=== PATIENT | male | born 1995 | race Caucasian/White ===

== ENCOUNTER 2023-01-13 00:03 | Emergency (ER) | payer SELFPAY ==
[2023-01-13 00:10] VITALS: BP 136/89; PULSE 69; RESP 18; TEMP 36.4; O2SAT 100; BMI 32.8
[2023-01-13 00:35] LABS: Basophils % 0.2 %; Hematocrit 44.5 % (42.0-52.0); Hemoglobin 15.5 g/dL (11.7-16.6); Lymphocytes % 5.7 %; Mean Corpuscular HGB Conc 34.8 g/dL (30.0-36.0); Mean Corpuscular Hemoglobin 32.1 pg (28.0-34.0); Mean Corpuscular Volume 92.1 fl (80-94); Mean Platelet Volume 9.2 fL (7.4-10.4); Monocytes # 0.5 10^3/uL (0.2-0.9); Monocytes % 2.8 %; Neutrophils # 15.65 10^3/uL (1.8-7.7); Neutrophils % 90.7 %; Nucleated Red Blood Cells % 0 %; Platelet Count 354 10^3/cmm (130-400); Red Blood Count 4.83 10^6/uL (4.1-5.3); Red Cell Distribution Width 11.6 % (12.1-15.1); White Blood Count 17.3 10^3/uL (4.0-10.0)
--- NOTE | 2023-01-13 00:35 | XRR_ITS ---
PROCEDURE INFORMATION: Exam: XR Abdomen Exam date and time: 01/13/2023 12:38 AM Age: 27 years old Clinical indication: Abdominal pain; Localized; Right lower quadrant (rlq); Patient HX: C/O rlq pain TECHNIQUE: Imaging protocol: Radiologic exam of the abdomen. Views: Frontal supine view of the abdomen. 1 View. COMPARISON: CR XR chest 2V* [id number] 02/01/2016 8:04 PM FINDINGS: Gastrointestinal tract: No bowel dilation. No free intra-abdominal air. The bowel gas pattern is nonobstructive. Bones/joints: Unremarkable. XR/XR KUB portable [id number] IMPRESSION: No acute findings correlate and follow-up as clinically indicated.
[2023-01-13 00:42] VITALS: BP 154/94; PULSE 58; RESP 18; O2SAT 98
[2023-01-13 00:45] VITALS: RESP 18; O2SAT 98
[2023-01-13] MEDS: ondansetron 2 mg/ML SDV 2 mL 4 MG IVP ×2 (00:45→03:20)
[2023-01-13] MEDS: morphine 4 mg/mL SDV 1 mL IVP (00:45)
--- NOTE | 2023-01-13 00:50 | CTR_ITS ---
PROCEDURE INFORMATION: Exam: CT Abdomen And Pelvis With Contrast Exam date and time: 01/13/2023 1:03 AM Age: 27 years old Clinical indication: Pain and abnormal findings; Abnormal lab test; Elevated wbc; Abdominal pain; Localized; Right lower quadrant (rlq); Patient HX: Rlq pain with wbc of 17k; Additional info: Rlq abdominal pain TECHNIQUE: Imaging protocol: Computed tomography of the abdomen and pelvis with contrast. Radiation optimization: All CT scans at this facility use at least one of these dose optimization techniques: automated exposure control; mA and/or kV adjustment per patient size (includes targeted exams where dose is matched to clinical indication); or iterative reconstruction. Contrast material: OMNI 350; Contrast volume: 100 ml; Contrast route: INTRAVENOUS (IV); REPORTING DATA: Count of CT and Cardiac NM exams in prior 12 months: This patient has received 0 known CTs and 0 known cardiac nuclear medicine studies in the 12 months prior to the current study. COMPARISON: CR (ABDOMEN, ) 01/13/2023 12:38 AM RADIATION DOSE METRICS: Total DLP (mGy-cm): 836.19 FINDINGS: Liver: The hepatic parenchyma is diffusely hypoattenuating. Are a call for a a No focal intrahepatic lesions are seen. Gallbladder and bile ducts: No gallbladder wall thickening. No calcified stones. No ductal dilation. Pancreas: No intraparenchymal lesions are seen. No ductal dilation. Spleen: No intraparenchymal lesions are seen. No splenomegaly. Adrenal glands: Normal. No mass. Kidneys and ureters: No solid intraparenchymal soft tissue lesion. There is a 3 mm calculus at the right UVJ resulting in moderate right hydroureter and hydronephrosis. Mild left renal and Nia ureteral soft tissue stranding/inflammatory changes are noted. Delayed appearance of the nephrographic phase of the right kidney. Right renal midpole nonobstructing 1 mm and 3 mm renal calculi on series 4, image 36. No other renal, ureteral, or urinary bladder calculi are seen. No left hydronephrosis or hydroureter. Stomach and bowel: No pathologic bowel dilatation. No obstruction. Appendix: No evidence of appendicitis. Intraperitoneal space: No free air. No abnormal walled-off fluid collection. Vasculature: No abdominal aortic aneurysm. Lymph nodes: No pathologically enlarged lymph nodes. Urinary bladder: Unremarkable as visualized. Reproductive: Unremarkable as visualized. Bones/joints: No acute fracture. Soft tissues: Very small fat containing umbilical hernia. CT/CT abdomen pelvis w con* [id number] IMPRESSION: 1. There is a 3 mm calculus at the right UVJ resulting in moderate right hydroureter and hydronephrosis. Mild left renal and Nia ureteral soft tissue stranding/inflammatory changes are noted. Delayed appearance of the nephrographic phase of the right kidney. Right renal midpole nonobstructing 1 mm and 3 mm renal calculi on series 4, image 36. No other renal, ureteral, or urinary bladder calculi are seen. 2. Hepatic steatosis and other chronic/incidental findings as described above.
[2023-01-13 00:53] LABS: Alanine Aminotransferase 77 U/L (0-41); Albumin Level 4.9 g/dL (3.5-5.2); Alkaline Phosphatase 99 U/L (40-130); Aspartate Amino Transferase 39 U/L (0-40); Blood Urea Nitrogen 10 mg/dL (6-20); Calcium 9.6 mg/dL (8.5-10.5); Carbon Dioxide 22 mmol/L (22-29); Chloride 102 mmol/L (98-107); Globulin 2.9 g/dL (1.3-4.6); Glomerular Filtration Rate 80.3 mL/min (90-130); Glucose 139 mg/dL (65-115); Osmolality Calculated 287 mOsm/kg (285-295); Sodium 138 mmol/L (136-145); Total Bilirubin 0.8 mg/dL (0.15-1.2); Total Protein 7.8 g/dL (6.6-8.7)
[2023-01-13] MEDS: sodium chloride 0.9% 1,000 ML 999 ML IV (00:57)
[2023-01-13] MEDS: iohexol 350 mg/mL 500 mL Btl (per mL) IV (01:07)
[2023-01-13 01:17] LABS: Lipase 20 U/L (13-60)
[2023-01-13 01:45] VITALS: BP 150/60; PULSE 66; RESP 18; O2SAT 97
[2023-01-13 02:00] VITALS: PULSE 67; RESP 18; O2SAT 98
[2023-01-13 02:07] LABS: Add Urine Microscopic? YES; Bilirubin Urine Neg (Negative); Blood Urine 3+ (Negative); Glucose Urine UA Norm (Normal); Ketones Urine 2+ (Negative); Leukocyte Esterase Urine Negative (Negative); Nitrate Urine Negative (Negative); Protein Urine 1+ (Negative); Urine Appearance Hazy (CLEAR); Urine Color Yellow (Yellow); Urobilinogen Urine Neg (Negative); pH Urine 5 (5-7)
[2023-01-13 02:08] LABS: Add Urine Culture? Yes; Bacteria Urine 1+ /hpf; Mucus Urine 2+ /hpf; RBC Urine 15-25 /hpf (0-2); WBC Urine 0-4 /hpf (0-5)
--- NOTE | 2023-01-13 02:38 | W.ED.ABDPA2 ---
Documented by User: Jania Alejandre, PROFESSOR OF THEATER-C 01/13/23 03:22 HPI - Abdominal Pain General: Chief Complaint: Abdominal Pain Stated Complaint: lower abd pain Time Seen by Provider: 01/13/23 00:11 History of Present Illness: Patient is in for sudden onset abdominal pain at 5:00 this evening. Patient states that he was not really doing anything and then just started having severe right lower quadrant abdominal pain. He has vomited 3 times. He denies any fever or chills. He denies any urinary symptoms, burning, blood, dysuria. He denies any history of kidney stone. He states that he does feel like he is a little bit constipated but he did have a normal bowel movement about 8:00 tonight. He reports his pain is an 8 on a 0-to-10 scale currently. Associated Symptoms: Reports nausea and vomiting; Denies chills, diarrhea, dysuria, fever(s) and syncope Review of Systems Const: Denies: fever(s), chills or body aches Eyes: Denies: change in vision or blurry vision Card: Denies: chest pain, palpitations, irregular heart rhythm, lightheadedness or syncope Resp: Denies: dyspnea, productive cough or non-productive cough GI: Reports: abdominal pain, nausea and vomiting; Denies: diarrhea : Denies: flank pain, dysuria, urinary frequency, urinary urgency or urinary hesitancy Musc: Denies: neck pain or back pain Neuro: Denies: headache(s), numbness in extremities or weakness in extremities Physical Exam Const: COMMON NORMALS: no acute distress, patient oriented x3 and alert GENERAL APPEARANCE: cooperative ORIENTATION/CONSCIOUSNESS: Yes awake, Yes oriented to person, Yes oriented to place and Yes oriented to time Eye: COMMON NORMALS: Equal, round and reactive pupils present, EOMs intact bilaterally and conjunctivae normal GENERAL EYE: appearance normal, both eyes and all related structures ALIGNMENT: Yes alignment normal CONJUNCTIVA: Yes conjunctivae normal SCLERA: sclerae normal PUPIL: Yes Equal, round and reactive pupils present Resp: COMMON NORMALS: normal respiratory effort, No retractions, No use of accessory muscles and clear to auscultation bilaterally EFFORT & INSPECTION: Yes symmetric chest movement AUSCULTATION: clear to auscultation bilaterally Cardio: COMMON NORMALS: regular rate, regular rhythm, S1 normal heart sound present and S2 normal heart sound present RATE: regular rate RHYTHM: regular rhythm HEART SOUNDS: S1 normal heart sound present and S2 normal heart sound present GI: COMMON NORMALS: Normal to inspection, nondistended, normoactive bowel sounds present and Soft to palpation PALPATION: Yes Soft to palpation and Yes Tenderness to palpation present (GI) Details: RLQ and RUQ OTHER: Positive for right lower quadrant and right flank/right upper quadrant tenderness. Guarding tenderness to the right flank. No rebound tenderness. Negative peritoneal signs Neuro: COMMON NORMALS: patient oriented x3 SENSORIUM/ORIENTATION: Yes alert, Yes oriented to person, Yes oriented to place and Yes oriented to time Psych: COMMON NORMALS: cooperative Course Vital Signs: Vital signs: Vital Signs Temperature 97.6 F 01/13/23 00:10 Pulse Rate 67 01/13/23 02:00 Respiratory Rate 18 01/13/23 02:00 Blood Pressure 150/60 01/13/23 01:45 Pulse Oximetry 98 01/13/23 02:00 Oxygen Delivery Me thod Room Air 01/13/23 02:00 MDM - Abdominal Pain Medical Decision Making Consider renal stone, appendicitis Patient pain improved with morphine. No vomiting while in the ER. White blood cell count 17.3. UA shows protein hematuria negative nitrates. 0320?KUB and CT not yet read by radiologist. Discussed the case with Dr. Samuels who states imaging shows renal stone. Agrees to assume care of patient. Ordered Flomax and Toradol. Advised patient of renal stone close monitoring and red flags for return to the ER. Patient care handed over to Dr. Samuels Lab Data 01/13/23 00:26 01/13/23 00:26 Labs/Radiology: Radiology Impressions KUB X-Ray 01/13/23 00:35 IMPRESSION: No acute findings correlate and follow-up as clinically indicated. Abdomen/Pelvis CT 01/13/23 00:50 IMPRESSION: 1. There is a 3 mm calculus at the right UVJ resulting in moderate right hydroureter and hydronephrosis. Mild left renal and Nia ureteral soft tissue stranding/inflammatory changes are noted. Delayed appearance of the nephrographic phase of the right kidney. Right renal midpole nonobstructing 1 mm and 3 mm renal calculi on series 4, image 36. No other renal, ureteral, or urinary bladder calculi are seen. 2. Hepatic steatosis and other chronic/incidental findings as described above. Laboratory Results WBC 17.3 10^3/uL (4.0-10.0) H 01/13/23 00: RBC 4.83 10^6/uL (4.1-5.3) 01/13/23 00: Hgb 15.5 g/dL (11.7-16.6) 01/13/23 00: Hct 44.5 % (42.0-52.0) 01/13/23 00: MCV 92.1 fl (80-94) 01/13/23 00: MCH 32.1 pg (28.0-34.0) 01/13/23 00: MCHC 34.8 g/dL (30.0-36.0) 01/13/23 00: RDW 11.6 % (12.1-15.1) L 01/13/23 00: Plt Count 354 10^3/cmm (130-400) 01/13/23 00: MPV 9.2 fL (7.4-10.4) 01/13/23 00: Neut % (Auto) 90.7 % 01/13/23 00: Lymph % (Auto) 5.7 % 01/13/23 00: [place] % (Auto) 2.8 % 01/13/23 00: Eos % (Auto) 0.0 % 01/13/23 00: Baso % (Auto) 0.2 % 01/13/23 00: Neut # (Auto) 15.65 10^3/uL (1.8-7.7) H 01/13/23 00: Lymph # (Auto) 1.0 10^3/uL (0.8-4.8) 01/13/23 00:26 [place] # (Auto) 0.5 10^3/uL (0.2-0.9) 01/13/23 00: Eos # (Auto) 0.0 10^3/uL (0.0-0.8) 01/13/23 00: Baso # (Auto) 0.0 10^3/uL (0.0-0.1) 01/13/23 00:26 Nucleated RBC % (auto) 0 % 01/13/23 00:26 Nucleated RBCs # 0.0 /100WBC 01/13/23 00:26 Sodium 138 mmol/L (136-145) 01/13/23 00:26 Potassium 4.0 mmol/L (3.5-5.1) 01/13/23 00:26 Chloride 102 mmol/L (98-107) 01/13/23 00:26 Carbon Dioxide 22 mmol/L (22-29) 01/13/23 00:26 Anion Gap 18.0 (5-19) 01/13/23 00:26 BUN 10 mg/dL (6-20) 01/13/23 00:26 Creatinine 1.1 mg/dL (0.7-1.2) 01/13/23 00:26 GFR Calculation 80.3 mL/min (90-130) L 01/13/23 00: Glucose 139 mg/dL (65-115) H 01/13/23 00:26 Calculated Osmolality 287 mOsm/kg (285-295) 01/13/23 00: Calcium 9.6 mg/dL (8.5-10.5) 01/13/23 00:26 Total Bilirubin 0.8 mg/dL (0.15-1.2) 01/13/23 00: AST 39 U/L (0-40) 01/13/23 00:26 ALT 77 U/L (0-41) H 01/13/23 00:26 Alkaline Phosphatase 99 U/L (40-130) 01/13/23 00:26 Total Protein 7.8 g/dL (6.6-8.7) 01/13/23 00: Albumin 4.9 g/dL (3.5-5.2) 01/13/23 00: Globulin 2.9 g/dL (1.3-4.6) 01/13/23 00:26 Lipase 20 U/L (13-60) 01/13/23 00:26 Urine Color Yellow (Yellow) 01/13/23 01:48 Urine Appearance Hazy (CLEAR) A 01/13/23 01:48 Urine pH 5 (5-7) 01/13/23 01:48 Ur Specific [place] 1.020 (1.005-1.030) 01/13/23 01:48 Urine Protein 1+ (Negative) H 01/13/23 01:48 Urine Glucose (UA) Norm (Normal) 01/13/23 01:48 Urine Ketones 2+ (Negative) H 01/13/23 01:48 Urine Blood 3+ (Negative) H 01/13/23 01:48 Urine Nitrate Negative (Negative) 01/13/23 01:48 Urine Bilirubin Neg (Negative) 01/13/23 01:48 Urine Urobilinogen Neg mg/dL (Negative) 01/13/23 01:48 Ur Leukocyte Esterase Negative (Negative) 01/13/23 01:48 Urine RBC 15-25 /hpf (0-2) H 01/13/23 01:48 Urine WBC 0-4 /hpf (0-5) H 01/13/23 01:48 Ur Squamous Epith Cells None /hpf (0-5) 01/13/23 01:48 Amorphous Sediment Not Reportable 01/13/23 01:48 Urine Bacteria 1+ /hpf (NONE) H 01/13/23 01:48 Urine Mucus 2+ /hpf 01/13/23 01:48 Discharge Plan Discharge Patient Disposition: Home Clinical Impression: Renal calculi Condition: Stable Prescriptions: New Flomax 0.4 mg capsule 0.4 mg PO DAILY Qty: 5 0RF ondansetron 4 mg tablet,disintegrating 4 mg PO Q8H PRN (Reason: nausea and vomiting) 3 Days Qty: 9 0RF hydrocodone-acetaminophen 5-325 mg tablet 1 tab PO Q6H PRN (Reason: pain) Qty: 14 0RF Discharge Orders: Discharge ED (Routine); Ordered 01/13/23 Ordered By: Roshni Samuels Discharge Diet: Advance as tolerated Discharge Activity: Resume usual activity Patient Instructions: Kidney Stones (ED), Opioid Safety, Pain Management Coding Level of Care Code ED Box Printing Machine Operator for Chg Fwd Documented by User: Roshni Samuels MD 01/13/23 03:35 HPI - Abdominal Pain General: Chief Complaint: Abdominal Pain Stated Complaint: lower abd pain Time Seen by Provider: 01/13/23 00:11 Course Vital Signs: Vital signs: Vital Signs Temperature 97.6 F 01/13/23 00:10 Pulse Rate 67 01/13/23 02:00 Respiratory Rate 18 01/13/23 02:00 Blood Pressure 150/60 01/13/23 01:45 Pulse Oximetry 98 01/13/23 02:00 Oxygen Delivery Me thod Room Air 01/13/23 02:00 MDM - Abdominal Pain Medical Decision Making Consider renal stone, appendicitis Patient pain improved with morphine. No vomiting while in the ER. White blood cell count 17.3. UA shows protein hematuria negative nitrates. 0320?KUB and CT not yet read by radiologist. Discussed the case with Dr. Samuels who states imaging shows renal stone. Agrees to assume care of patient. Ordered Flomax and Toradol. Advised patient of renal stone close monitoring and red flags for return to the ER. Patient care handed over to Dr. Samuels CT does show a kidney stone no sign urinary tract infections pain is controlled he stable for discharge he is return if worsening. Lab Data 01/13/23 00:26 01/13/23 00:26 Labs/Radiology: Radiology Impressions KUB X-Ray 01/13/23 00:35 IMPRESSION: No acute findings correlate and follow-up as clinically indicated. Abdomen/Pelvis CT 01/13/23 00:50 IMPRESSION: 1. There is a 3 mm calculus at the right UVJ resulting in moderate right hydroureter and hydronephrosis. Mild left renal and Nia ureteral soft tissue stranding/inflammatory changes are noted. Delayed appearance of the nephrographic phase of the right kidney. Right renal midpole nonobstructing 1 mm and 3 mm renal calculi on series 4, image 36. No other renal, ureteral, or urinary bladder calculi are seen. 2. Hepatic steatosis and other chronic/incidental findings as described above. Laboratory Results WBC 17.3 10^3/uL (4.0-10.0) H 01/13/23 00:26 RBC 4.83 10^6/uL (4.1-5.3) 01/13/23 00:26 Hgb 15.5 g/dL (11.7-16.6) 01/13/23 00:26 Hct 44.5 % (42.0-52.0) 01/13/23 00:26 MCV 92.1 fl (80-94) 01/13/23 00: MCH 32.1 pg (28.0-34.0) 01/13/23 00: MCHC 34.8 g/dL (30.0-36.0) 01/13/23 00: RDW 11.6 % (12.1-15.1) L 01/13/23 00: Plt Count 354 10^3/cmm (130-400) 01/13/23 00: MPV 9.2 fL (7.4-10.4) 01/13/23 00: Neut % (Auto) 90.7 % 01/13/23 00: Lymph % (Auto) 5.7 % 01/13/23 00: [place] % (Auto) 2.8 % 01/13/23 00: Eos % (Auto) 0.0 % 01/13/23 00: Baso % (Auto) 0.2 % 01/13/23 00: Neut # (Auto) 15.65 10^3/uL (1.8-7.7) H 01/13/23 00: Lymph # (Auto) 1.0 10^3/uL (0.8-4.8) 01/13/23 00: [place] # (Auto) 0.5 10^3/uL (0.2-0.9) 01/13/23 00: Eos # (Auto) 0.0 10^3/uL (0.0-0.8) 01/13/23 00: Baso # (Auto) 0.0 10^3/uL (0.0-0.1) 01/13/23 00: Nucleated RBC % (auto) 0 % 01/13/23 00: Nucleated RBCs # 0.0 /100WBC 01/13/23 00: Sodium 138 mmol/L (136-145) 01/13/23 00: Potassium 4.0 mmol/L (3.5-5.1) 01/13/23 00: Chloride 102 mmol/L (98-107) 01/13/23 00: Carbon Dioxide 22 mmol/L (22-29) 01/13/23 00: Anion Gap 18.0 (5-19) 01/13/23 00:26 BUN 10 mg/dL (6-20) 01/13/23 00: Creatinine 1.1 mg/dL (0.7-1.2) 01/13/23 00: GFR Calculation 80.3 mL/min (90-130) L 01/13/23 00: Glucose 139 mg/dL (65-115) H 01/13/23 00: Calculated Osmolality 287 mOsm/kg (285-295) 01/13/23 00: Calcium 9.6 mg/dL (8.5-10.5) 01/13/23 00: Total Bilirubin 0.8 mg/dL (0.15-1.2) 01/13/23 00: AST 39 U/L (0-40) 01/13/23: ALT 77 U/L (0-41) H 01/13/23 00: Alkaline Phosphatase 99 U/L (40-130) 01/13/23 00: Total Protein 7.8 g/dL (6.6-8.7) 01/13/23 00: Albumin 4.9 g/dL (3.5-5.2) 01/13/23 00: Globulin 2.9 g/dL (1.3-4.6) 01/13/23 00:26 Lipase 20 U/L (13-60) 01/13/23 00:26 Urine Color Yellow (Yellow) 01/13/23 01:48 Urine Appearance Hazy (CLEAR) A 01/13/23 01:48 Urine pH 5 (5-7) 01/13/23 01:48 Ur Specific [place] 1.020 (1.005-1.030) 01/13/23 01:48 Urine Protein 1+ (Negative) H 01/13/23 01:48 Urine Glucose (UA) Norm (Normal) 01/13/23 01:48 Urine Ketones 2+ (Negative) H 01/13/23 01:48 Urine Blood 3+ (Negative) H 01/13/23 01:48 Urine Nitrate Negative (Negative) 01/13/23 01:48 Urine Bilirubin Neg (Negative) 01/13/23 01:48 Urine Urobilinogen Neg mg/dL (Negative) 01/13/23 01:48 Ur Leukocyte Esterase Negative (Negative) 01/13/23 01:48 Urine RBC 15-25 /hpf (0-2) H 01/13/23 01:48 Urine WBC 0-4 /hpf (0-5) H 01/13/23 01:48 Ur Squamous Epith Cells None /hpf (0-5) 01/13/23 01:48 Amorphous Sediment Not Reportable 01/13/23 01:48 Urine Bacteria 1+ /hpf (NONE) H 01/13/23 01:48 Urine Mucus 2+ /hpf 01/13/23 01:48 Discharge Plan Discharge Patient Disposition: Home Clinical Impression: Renal calculi Condition: Stable Prescriptions: New Flomax 0.4 mg capsule 0.4 mg PO DAILY Qty: 5 0RF ondansetron 4 mg tablet,disintegrating 4 mg PO Q8H PRN (Reason: nausea and vomiting) 3 Days Qty: 9 0RF hydrocodone-acetaminophen 5-325 mg tablet 1 tab PO Q6H PRN (Reason: pain) Qty: 14 0RF Discharge Orders: Discharge ED (Routine); Ordered 01/13/23 Ordered By: Roshni Samuels Discharge Diet: Advance as tolerated Discharge Activity: Resume usual activity Patient Instructions: Kidney Stones (ED), Opioid Safety, Pain Management Coding Level of Care Code ED Box Printing Machine Operator for Melia Waterman
[2023-01-13] MEDS: ketorolac 30 mg/mL INJ IVP (03:20)
[2023-01-13] MEDS: tamsulosin 0.4 mg Capsule PO (03:20)
--- NOTE | 2023-01-13 10:23 | PC.NURSE ---
Addendum entered by Tina Reyna 01/19/23 08:45: Patient had a follow up appointment scheduled with urology - patient did attend appointment Addendum entered by Tina Reyna 01/17/23 15:30: Patient has a follow up appointment scheduled for Monday, January 18, 2023 at 1:[address] Emery at urology. Original Note: Patient seen in the ED and referred to urology for kidney stones. [facility] sent message to call pt with an appt.
--- NOTE | 2023-01-19 15:52 | DCPLANNER ---
it audit manager called patient due to no primary care physician - patient declines at this time.
== END 2023-01-13 03:37 | disposition home or self-care (01) ==
PROVIDERS: Nurse Practitioner Family; Emergency Provider Emergency Medicine
DX: N13.2 Hydronephrosis with renal and ureteral calculous obstruction (principal)
CPT/HCPCS: 74018; 74177; 80053; 81001; 83690; 85025; 87086; 96374; 96375; 96376; 99285; J1885; J2270; J2405; J7030; Q9967

== ENCOUNTER 2023-01-18 12:28 | Outpatient (CLI) | payer SELFPAY ==
--- NOTE | 2023-01-18 12:38 | XR_ITS ---
WS: [id number] Exam: XR KUB [id number] Date/Time of Exam: 01/18/2023 12:45 PM Reason For Exam: STONES No bowel obstruction or free air. No sign of organ enlargement. Regional bony elements appear normal. XR/XR KUB [id number] IMPRESSION: 1. Negative KUB.
== END 2023-01-18 12:29 | disposition home or self-care (01) ==
PROVIDERS: Visit Provider Urology
DX: N20.0 Calculus of kidney (principal)
CPT/HCPCS: 74018